=== PATIENT | male | born 1980 | race Caucasian/White ===

== ENCOUNTER 2020-11-09 12:59 | Outpatient (CLI) | payer SELFPAY | END 2020-11-09 13:00 | disposition home or self-care (01) | LOC: COV 12:59 | PROVIDERS: ATTEND Family Medicine | DX: Z20.828 Contact with and (suspected) exposure to other viral communicable diseases (principal) ==

== ENCOUNTER 2020-12-06 21:12 | Outpatient (CLI) | payer SELFPAY | END 2020-12-06 21:13 | disposition home or self-care (01) | LOC: COV 21:12 | PROVIDERS: ATTEND Family Medicine | DX: Z20.822 Contact with and (suspected) exposure to COVID-19 (principal) ==